=== PATIENT | male | born 1980 | race Two or more races ===

== ENCOUNTER 2020-07-14 12:32 | Day surgery (SDC) | payer OTHER ==
[~2020-07-14] VITALS: Ht 165.1 cm; Wt 84.4 kg
[~2020-07-14 12:32] MED LIST: NS 1,000 ML IV ONE; OMEP40CA97 PO; RIZA10TA58 PO
[2020-07-14] MEDS ORDERED: propofoL 200 MG/20 ML VIAL As Ordered ONE (13:22)
[2020-07-14] MEDS ORDERED: LIDOCAINE 2% 100MG/5ML SDV (FOR ANES.) As Ordered ONE (13:22)
[2020-07-14] MEDS ORDERED: fentaNYL 100 MCG/2 ML INJECTION (J3010) As Ordered ONE (13:52)
--- NOTE | 2020-07-14 14:14 | ROOR ---
Patient Name: Marcus Byrne Procedure Date: 07/14/2020 1:44 PM Date of : 1980 Age: 40 Room: [facility] Gender: Male Note Status: Finalized Procedure: Upper Endoscopy + Biopsies Indications: Heartburn, Failure to respond to medical treatment Providers: Geo Pinto MD Referring MD: SHERYL AMARAL MD Requesting Provider: Medicines: Monitored Anesthesia Care Complications: No immediate complications. Procedure: Pre-Anesthesia Assessment: - The heart rate, respiratory rate, oxygen saturations, blood pressure, adequacy of pulmonary ventilation, and response to care were monitored throughout the procedure. The Endoscope was introduced through the mouth, and advanced to the second part of duodenum. The upper GI endoscopy was accomplished without difficulty. The patient tolerated the procedure well. Findings: The Z-line was regular and was found 35 cm from the incisors. Multiple biopsies were obtained with cold forceps for evaluation to rule out Salvador's Esophagus randomly at the gastroesophageal junction. A medium-sized hiatal hernia was present. Localized mildly erythematous mucosa was found at the pylorus. Biopsies were taken with a cold forceps for Helicobacter pylori testing. The exam of the duodenum was otherwise normal. Impression: - Z-line regular, 35 cm from the incisors. - Medium-sized hiatal hernia. - Erythematous mucosa in the pylorus. Biopsied. - Multiple biopsies were obtained at the gastroesophageal junction. - The examination was otherwise normal. Recommendation: - Patient has a contact number available for emergencies. The signs and symptoms of potential delayed complications were discussed with the patient. Return to normal activities tomorrow. Written discharge instructions were provided to the patient. - High fiber diet. - Discharge patient to home. - Follow an antireflux regimen. - Continue present medications. - Await pathology results. - Telephone GI clinic for pathology results in 1 week. - Use Prilosec (omeprazole) 40 mg PO BID for 3 months. - Use Prilosec (omeprazole) 40 mg PO daily indefinitely, after the 3 months of twice a day dosing. Procedure Code(s): --- Professional --- 03483, Esophagogastroduodenoscopy, flexible, transoral; with biopsy, single or multiple Diagnosis Code(s): --- Professional --- K44.9, Diaphragmatic hernia without obstruction or gangrene K31.89, Other diseases of stomach and duodenum R12, Heartburn CPT copyright 2019 [employer]. All rights reserved. The codes documented in this report are preliminary and upon uke driver review may be revised to meet current compliance requirements. Geo Pinto MD Geo Pinto MD 07/14/2020 2:14:23 PM Electronically signed by Geo Pinto MD Number of Addenda: 0 Note Initiated On: 07/14/2020 1:44 PM Estimated Blood Loss: Estimated blood loss: none.
[2020-07-14 14:35] VITALS: BP 113/78
== END 2020-07-14 14:50 | disposition home or self-care (01) ==
LOC: M OPP 12:32
PROVIDERS: ATTEND Internal Medicine Gastroenterology
DX: R12 Heartburn (principal); K31.89 Other diseases of stomach and duodenum; K44.9 Diaphragmatic hernia without obstruction or gangrene
CPT/HCPCS: 43239; 88305; J3010

== ENCOUNTER → 2020-11-10 | Outpatient (REF) | payer OTHER ==
[~2020-11-10] MED LIST changes: -NS 1,000 ML IV ONE
== END ==
LOC: M LAB REF 15:56
PROVIDERS: ATTEND Otolaryngology
DX: J36 Peritonsillar abscess (principal)

== ENCOUNTER → 2021-06-15 | Outpatient (REF) ==
[~2021-06-15] MED LIST changes: +OMEP40CA4 PO; -OMEP40CA97 PO
--- NOTE | 2021-06-15 17:41 | REP ---
INDICATION: PAIN,INJURY. COMPARISON: None. TECHNIQUE: Three views of each shoulder was obtained. FINDINGS: There is no evidence of fracture or dislocation. The acromioclavicular and glenohumeral joints are normal bilaterally. The periarticular soft tissues are normal bilaterally. Visualized portions of the right and left lung are normal. IMPRESSION: Normal bilateral shoulders. <Electronically signed by Cory Garsia > 06/15/21 [id number]
--- NOTE | 2021-06-16 03:15 | REP ---
INDICATION: PAIN,INJURY COMPARISON: None. TECHNIQUE: AP, lateral, bilateral oblique views right and left foot. FINDINGS: Osseous structures, joint spaces, and surrounding soft tissues are essentially age-appropriate, symmetric and within normal limits for age. Very minimal periarticular sclerosis and joint space narrowing suggested at the 1st metatarsophalangeal joint. No further overt osteoarthritic or inflammatory arthritic changes are appreciated. No evidence for acute or healed injury. IMPRESSION: Essentially symmetric age-appropriate examination. Very minimal changes at the 1st MTP joints should be correlated with physical examination. <Electronically signed by Flynn Sanders > 06/16/21 [id number]
--- NOTE | 2021-06-16 03:16 | REP ---
INDICATION: PAIN,INJURY COMPARISON: None. TECHNIQUE: AP and lateral view of the right and left knee. FINDINGS: Osseous structures, joint spaces, and surrounding soft tissues are essentially symmetric, age-appropriate, and within normal limits. No significant overt osteoarthritic or inflammatory arthritic changes are appreciated. No evidence for acute or healed injury. No obvious effusion. IMPRESSION: Symmetric age-appropriate bilateral knee radiographs. <Electronically signed by Flynn Sanders > 06/16/21 [id number]
--- NOTE | 2021-06-16 03:17 | REP ---
INDICATION: PAIN,INJURY COMPARISON: None. TECHNIQUE: AP, lateral, coned-down views of the lumbar spine. FINDINGS: Alignment and lordosis maintained. Very minimal endplate sclerosis and subtle marginal spurring primarily noted at L5-S1 and L3-4. No evidence for fracture/compression injury or subluxation. IMPRESSION: Essentially age-appropriate examination. Very minimal subtle early degenerative changes at L5-S1 and L3-4 cannot be excluded. <Electronically signed by Flynn Sanders > 06/16/21 [id number]
--- NOTE | 2021-06-16 03:18 | REP ---
INDICATION: PAIN,INJURY COMPARISON: None. TECHNIQUE: AP and lateral right elbow FINDINGS: Osseous structures, joint spaces, and surrounding soft tissues are age-appropriate and within normal limits. No overt osteoarthritic or inflammatory arthritic changes are appreciated. No evidence for effusion. No evidence for acute or healed injury. IMPRESSION: Normal elbow radiographs. <Electronically signed by Flynn Sanders > 06/16/21 [id number]
--- NOTE | 2021-06-16 03:20 | REP ---
INDICATION: PAIN,INJURY COMPARISON: None. TECHNIQUE: AP, lateral, and swimmers views. FINDINGS: Alignment and kyphosis is maintained. Vertebral bodies intact. No acute fracture / compression injury or subluxation. No degenerative changes. Paravertebral soft tissues are normal. IMPRESSION: Normal age-appropriate thoracic spine series. <Electronically signed by Flynn Sanders > 06/16/21 [id number]
--- NOTE | 2021-06-16 03:20 | REP ---
INDICATION: PAIN,INJURY. COMPARISON: None. TECHNIQUE: AP, lateral, open mouth views of the cervical spine FINDINGS: Straightening of normal lordosis is nonspecific. Very minimal endplate sclerosis and subtle disc space narrowing throughout the visualized cervical spine cannot be excluded. No evidence for acute fracture/compression injury or subluxation. IMPRESSION: Straightening of normal lordosis and mild generalized age-related changes suggested. <Electronically signed by Flynn Sanders > 06/16/21 031
== END ==
LOC: M PLAIMG 10:45
PROVIDERS: ATTEND Internal Medicine
DX: M25.521 Pain in right elbow (principal); M25.562 Pain in left knee; M25.511 Pain in right shoulder

== ENCOUNTER → 2022-09-29 | Outpatient (CLI) | payer OTHER | LOC: M RAD 12:39 | PROVIDERS: ATTEND Internal Medicine | DX: N50.82 Scrotal pain (principal) ==